=== PATIENT | female | born 1990 | race Caucasian/White ===

== ENCOUNTER → 2016-07-16 | Outpatient (CLI) | payer BC ==
[~2016-07-16] MED LIST: NICO2GUM PO
== END | disposition home or self-care (01) ==
LOC: C.PAPS 11:02
PROVIDERS: ATTEND Obstetrics & Gynecology
DX: Z01.419 Encounter for gynecological examination (general) (routine) without abnormal findings (principal)

== ENCOUNTER 2017-03-03 23:04 | Emergency (ER) | payer BC ==
[~2017-03-03] VITALS: Ht 162.6 cm; Wt 68.7 kg
[2017-03-03 23:05] VITALS: TEMP 36.7; Ht 162.6 cm; Wt 68.7 kg
--- NOTE | 2017-03-03 23:23 | EMERGENCY ROOM VISIT NOTE ---
History Report prepared by Addy: Chris Joseph Under the Supervision of: Nhan WhyteO. First contact with patient: 23:08 Chief Complaint: ABDOMINAL PAIN Stated Complaint: GALLBLADDER History of Present Illness The patient is a 26 year old female who presents to the Emergency Room with complaints of a constant, burning sensation to her right upper quadrant and epigastric region of her abdomen beginning 45 minutes ago. She currently rates her discomfort a 7/10 in severity. The patient states her pain originally was a 10/10 in severity, and she was nauseous. She reports she thinks it has to do with her gallbladder. The patient notes it feels like her stomach lining is burning. She states she ate potpie for dinner. The patient reports she had a few bites and felt extremely full and bloated. She denies a family history of stomach problems, gallbladder disease, fevers, chills, changes in bowel movements, urinary symptoms, medication changes, diet changes, and the chance of . Source of History: patient Onset: 45 minutes ago Position: abdomen (RUQ and epigastric) Symptom Intensity: 7/10 Quality: burning Timing: constant Associated Symptoms: + nausea, No fevers, No chills Note: Associated symptoms: bloated Denies: changes in bowel movements, urinary symptoms, medication changes, diet changes, and the chance of Review of Systems See HPI for pertinent positives & negatives. A total of 10 systems reviewed and were otherwise negative. Past Medical & Surgical Medical Problems: (1) (2) History of - miscarriage Family History Diabetes mellitus Social History Smoking Status: Former Smoker Alcohol Use: none Marital Status: single Occupation Status: employed Current/Historical Medications Scheduled Nicotine Polacrilex (Nicotine Polacrilex Start), 1 DOSE PO UD Allergies Coded Allergies: No Known Allergies (Unverified , 03/03/17) Physical Exam Vital Signs Date Time Temp Pulse Resp B/P (MAP) Pulse Ox O2 Delivery O2 Flow Rate FiO2 03/04/17 00:57 66 18 120/75 98 03/04/17 00:54 64 99 03/04/17 00:39 68 97 03/04/17 00:30 100/54 03/04/17 00:24 67 98 03/04/17 00:15 107/56 03/04/17 00:15 70 16 107/56 98 Room Air 03/03/17 23:34 63 18 99 Room Air 03/03/17 23:30 106/61 03/03/17 23:25 106/64 03/03/17 23:05 36.7 72 18 102/57 99 Room Air Physical Exam GENERAL: alert, well appearing, well nourished, no distress, non-toxic EYE EXAM: normal conjunctiva, PERRL and EOM's grossly intact OROPHARYNX: no exudate, no erythema, lips, buccal mucosa, and tongue normal and mucous membranes are moist NECK: supple, no nuchal rigidity, no adenopathy, non-tender LUNGS: Clear to auscultation. Normal chest wall mechanics HEART: no murmurs, S1 normal and S2 normal ABDOMEN: abdomen soft, RUQ and epigastric tenderness to palpation, normo-active bowel sounds, no masses, no rebound or guarding. BACK: Back is symmetrical on inspection and there is no deformity, no midline tenderness, no CVA tenderness. SKIN: no rashes and no bruising UPPER EXTREMITIES: upper extremities are grossly normal. LOWER EXTREMITIES: No pitting edema. NEURO EXAM: Normal sensorium, cranial nerves II-XII grossly intact, normal speech, no gross weakness of arms, no gross weakness of legs. Medical Decision & Procedures ER Provider Diagnostic Interpretation: Radiology results have been interpreted by the radiologist and reviewed by me. US GALLBLADDER: Comparison: Abdomen pelvis February 10, 2012. Gallbladder sludge. No gallstones or evidence of cholecystitis. No wall thickening or pericholecystic fluid. No biliary dilatation. Minimal dilatation of the pancreatic duct in the body (3mm). Liver and right kidney are unremarkable. No free fluid. Radiologist: Aurelio Granados MD Study ready at 0014 and initial results transmitted at 0030. Laboratory Results 03/03/17 23:30 Red Blood Count 3.94, Mean Corpuscular Volume 90.1, Mean Corpuscular Hemoglobin 31.5, Mean Corpuscular Hemoglobin Concent 34.9, Mean Platelet Volume 9.6, Neutrophils (%) (Auto) 56.8, Lymphocytes (%) (Auto) 34.2, Monocytes (%) (Auto) 7.1, Eosinophils (%) (Auto) 1.2, Basophils (%) (Auto) 0.4, Neutrophils # (Auto) 3.95, Lymphocytes # (Auto) 2.38, Monocytes # (Auto) 0.49, Eosinophils # (Auto) 0.08, Basophils # (Auto) 0.03 03/03/17 23:30 Test 03/03/17 23:30 White Blood Count 6.95 K/uL (4.8-10.8) Red Blood Count 3.94 M/uL (4.2-5.4) Hemoglobin 12.4 g/dL (12.0-16.0) Hematocrit 35.5 % (37-47) Mean Corpuscular Volume 90.1 fL (80-100) Mean Corpuscular Hemoglobin 31.5 pg (25-34) Mean Corpuscular Hemoglobin Concent 34.9 g/dl (32-36) Platelet Count 200 K/uL (130-400) Mean Platelet Volume 9.6 fL (7.4-10.4) Neutrophils (%) (Auto) 56.8 % Lymphocytes (%) (Auto) 34.2 % Monocytes (%) (Auto) 7.1 % Eosinophils (%) (Auto) 1.2 % Basophils (%) (Auto) 0.4 % Neutrophils # (Auto) 3.95 K/uL (1.4-6.5) Lymphocytes # (Auto) 2.38 K/uL (1.2-3.4) Monocytes # (Auto) 0.49 K/uL (0.11-0.59) Eosinophils # (Auto) 0.08 K/uL (0-0.5) Basophils # (Auto) 0.03 K/uL (0-0.2) RDW Standard Deviation 39.8 fL (36.4-46.3) RDW Coefficient of Variation 12.1 % (11.5-14.5) Immature Granulocyte % (Auto) 0.3 % Immature Granulocyte # (Auto) 0.02 K/uL (0.00-0.02) Anion Gap 6.0 mmol/L (3-11) Est Creatinine Clear Calc Drug Dose 85.8 ml/min Estimated GFR () 96.9 Estimated GFR (Non- 83.6 BUN/Creatinine Ratio 15.2 (10-20) Calcium Level 8.4 mg/dl (8.5-10.1) Total Bilirubin 0.2 mg/dl (0.2-1) Aspartate Amino Transf (AST/SGOT) 12 U/L (15-37) Alanine Aminotransferase (ALT/SGPT) 18 U/L (12-78) Alkaline Phosphatase 40 U/L (45-117) Total Protein 6.7 gm/dl (6.4-8.2) Albumin 3.5 gm/dl (3.4-5.0) Globulin 3.2 gm/dl (2.5-4.0) Albumin/Globulin Ratio 1.1 (0.9-2) Lipase 235 U/L (73-393) Human Chorionic Gonadotropin, Qual NEG (NEG) Laboratory results per my review. Medications Administered Medications (Trade) Dose Ordered Sig/Davie Route Start Time Stop Time Status Last Admin Dose Admin Famotidine (Pepcid 20mg Iv Push) 20 mg NOW STAT IV 03/04/17 00:19 03/04/17 00:20 DC 03/04/17 00:53 20 MG Al Hydroxide/Mg Hydroxide (Maalox Susp) 15 ml NOW STAT PO 03/04/17 00:19 03/04/17 00:20 DC 03/04/17 00:52 15 ML ED Course 2308: The patient was evaluated in room B05. A complete history and physical exam was performed. 0019: Ordered Maalox Susp 15ml PO, Famotidine 20mg IV 0041: Upon reevaluation, the patient is feeling better. 0052: After receiving the ultrasound results, I discussed the findings and the treatment plan with the patient. She verbalizes agreement and understanding. The patient was discharged home. Medical Decision Differential diagnoses includes but is not limited to gastritis, peptic ulcer disease, GERD, gallbladder disease, pancreatitis, small bowel obstruction, acute coronary syndrome, pericarditis, ischemic bowel, irritable bowel disease, irritable bowel syndrome, appendicitis, diverticulitis, malignancy, hernia, urinary tract infection, torsion, /ectopic , perforation, trauma, infectious. Patient well-appearing here and pain improved here prior to my evaluation. Discussed patient labs and imaging. Discussed likely biliary colic given diet and prior milder episodes. Discussed follow-up with family doctor in possible need for HIDA scan or surgical evaluation as an outpatient. No evidence of acute cholecystitis, doubt cholangitis, perforation, GI bleed. Discussed with patient possibility of GERD/gastritis to given symptoms of indigestion and acidity in diet. Discussed symptoms to watch and return for, dietary changes and adequate hydration, she verbalized understanding was agreeable with plan. Medication Reconcilliation Current Medication List: was personally reviewed by me Blood Pressure Screening Patient's blood pressure: Normal blood pressure Impression Primary Impression: Right upper quadrant abdominal pain Additional Impression: Biliary sludge Scribe Attestation The scribe's documentation has been prepared under my direction and personally reviewed by me in its entirety. I confirm that the note above accurately reflects all work, treatment, procedures, and medical decision making performed by me. Departure Information Dispostion Home / Self-Care Referrals Cesar Wilson M.D. (PCP) Forms HOME CARE DOCUMENTATION FORM, IMPORTANT VISIT INFORMATION Patient Instructions My [facility] [place] Additional Instructions Please eat a light and bland diet and avoid foods that have a higher fat content such as fried foods, gravy, ice cream, desserts. Your ultrasound showed sludge in your gallballder, but no larger stones and no evidence of acute infection or inflammation. Please follow up with your family doctor and follow up with a surgeon regarding possible additional evaluation of her gallbladder. Your family doctor may suggest additional testing of your gallbladder including a nuclear scan. Please also monitor the amount of acid in your diet as this can contribute to stomach irritation and reflux. If you develop recurrent or worsening pain, vomiting, fevers, noticed black or bloody stools, have trouble breathing, chest pain, or you've any other new concerns, please return the emergency room. Problem Qualifiers
[2017-03-03] MEDS ORDERED: NICO2GUM PO (23:32)
[2017-03-03 23:43] LABS: BASO % 0.4 %; BASO ABS # 0.03 K/uL (0-0.2); COMPLETE YES; EOS % 1.2 %; HEMATOCRIT 35.5 % (37-47); IG% 0.3 %; LYMPH % 34.2 %; LYMPH ABS # 2.38 K/uL (1.2-3.4); MEAN CELL VOLUME 90.1 fL (80-100); MEAN CORPUSCULAR HEMOGLOBIN 31.5 pg (25-34); MEAN CORPUSCULAR HGB CONC 34.9 g/dl (32-36); MEAN PLATELET VOLUME 9.6 fL (7.4-10.4); MONO % 7.1 %; NEUT % 56.8 %; PLATELET COUNT 200 K/uL (130-400); RED BLOOD COUNT 3.94 M/uL (4.2-5.4); WHITE BLOOD COUNT 6.95 K/uL (4.8-10.8)
[2017-03-04 00:05] LABS: PREG INTERNAL NEGATIVE QC NEG CLEAR BACKGROUND; PREG INTERNAL POSITIVE QC POS CONTROL LINE
[2017-03-04 00:08] LABS: BUN/CREATININE RATIO 15.2 (10-20); CALCIUM 8.4 mg/dl (8.5-10.1); CREATININE 0.93 mg/dl (0.60-1.20); POTASSIUM 3.5 mmol/L (3.5-5.1)
[2017-03-04 00:11] LABS: ALB/GLOB RATIO 1.1 (0.9-2)
[2017-03-04] MEDS ORDERED: FAMOTIDINE 20MG/5ML IV PUSH IV STA (00:19)
[2017-03-04] MEDS ORDERED: ALUMINUM/MAGNESIUM SUSP 30 ML UDC PO STA (00:19)
[2017-03-04 00:57] VITALS: BP 120/75; PULSE 66; O2SAT 98
--- NOTE | 2017-03-04 06:55 | DIAGNOSTIC IMAGING REPORT ---
BILIARY ULTRASOUND CLINICAL HISTORY: Right upper quadrant abdominal pain COMPARISON STUDY: No previous studies for comparison. FINDINGS: The pancreatic duct is the upper limits of normal diameter measuring 3 mm in maximal size. No pancreatic masses are visualized.. The liver appears sonographically normal. There is no hydronephrosis. There is tumefactive sludge in the gallbladder. No shadowing calculi are visualized. There is no wall thickening. There is no ductal dilatation. The common bile duct measures 2 mm. IMPRESSION: Tumefactive sludge within the gallbladder. No shadowing calculi identified. No evidence of ductal dilatation. Electronically signed by: Rafat Chambers M.D. 03/04/2017 6:54 AM Dictated Date/Time: 03/04/2017 6:52 AM
== END 2017-03-04 01:02 | disposition home or self-care (01) ==
LOC: C.EDB 23:04
DX: R10.11 Right upper quadrant pain (principal); K83.8 Other specified diseases of biliary tract; Z87.891 Personal history of nicotine dependence; Z83.3 Family history of diabetes mellitus

== ENCOUNTER 2019-11-03 06:55 | Inpatient (IN) ==
[2019-11-03] MEDS ORDERED: OXYTOCIN 30 UNITS/500 ML BAG IV PRN ×3 (07:39→14:13)
[2019-11-03] MEDS ORDERED: LACTATED RINGER'S 1,000 ML IV PRN (07:39)
--- NOTE | 2019-11-03 07:45 | Labor Progress Brief Note ---
Date of Service November 03, 2019 Subjective SROM for large amount clear fluid at 0630, presented to ER. Onset of contractions mild, not yet painful. No VB, good FM. Assessment & Plan (1) SROM (spontaneous rupture of membranes): SROM, will augment with pitocin as contractions only very mild so far. GBS neg. Velamentous cord insertion noted. Physical Exam Constitutional: WD/WN, vitals as above Eyes: PERRL, conjunctivae normal, anicteric sclerae ENMT: external ear and nose normal, oropharynx normal Neck: supple Respiratory: normal respiratory effort and able to speak in complete sentences; no respiratory distress Cardiovascular: Rate/Rhythm: regular rate and regular rhythm Extremities: + pedal edema Gastrointestinal (Abdomen): Gravid / AGA, nontender Musculoskeletal: no cyanosis or clubbing, extremities motor strength 5/5 Skin: no rashes, warm and dry Neurologic: patellar DTR's 2+ bilat, sensation intact Psychiatric: A+Ox3, euthymic affect Genitourinary: Speculum/Bimanual Exam: no vaginal lesions, no vaginal bleeding and uterus nontender OB Exam Abdomen: + vertex, + estimated weight (7) and + regular contractions (Q3) Manual OB Exam: + cervical dilation 3 cm, + cervical effacement 50%, + station -2 and + amniotic fluid clear and ferning present OB Exam Monitor Tracing: + external FHT monitor used, + external uterine monitor used and + category I Lymphatic: no cervical or axillary lymphadenopathy Results & Data ([facility]) Vital Signs (Past 12 Hours) Vital Signs Pulse BP 11/03/19 07:04 105 H 106/61 Coding Level of Care Code None Diagnoses SROM (spontaneous rupture of membranes)
--- NOTE | 2019-11-03 08:06 | History & Physical Report ---
Date of Service November 03, 2019 Assessment & Plan (1) SROM (spontaneous rupture of membranes): [place] Andres is a 29 y/o female currently at 39-4/7 WGA with an MARA 11/06/2019 as determined by LMP who is here with her , Donnie, for anticipated labor in the setting of SROM earlier this AM. Her has only been complicated by velamentous cord insertion, which has been followed with weekly NSTs since 36 WGA. - SROM earlier this AM; confirmed on vaginal examination and with fernining via microscopy per Dr. Hill - Cat I w/ +FHT variability - Estimate weight ~7-8lb - Anticipate - Patient not requesting an epidural at this time and would like to attempt without analgesia -- has been informed that if at any point she wants one to let us know. Blood Type: A+ GBS: negative Rubella: immune Present on Admission?: Yes History of Present Illness Primary Care Provider: Cesar Wilson MD [place] Andres is a 29 y/o female currently at 39-4/7 WGA with an MARA 11/06/2019 as determined by LMP who is here for a anticipated labor in the setting of SROM earlier this AM. Her has only been complicated by velamentous cord insertion, which has been followed with weekly NSTs since 36 WGA. Endorses some irregular contractions; notices less movement that typical in the setting of contractions; endorses fluid loss early this AM with a tint of blood. No laina bloody discharge. External FHT and external uterine monitors used; Category I tracing; +FHT variability. Had regular appointments with OB. Labs: (04/18/19) Blood type: A+ Antibody screen: neg H.8 Hct: 42.3 WBC: 7.96 Plt: 216 Rubella: immune VDRL/RPR: NR Gonorrhea: neg Chlamydia: neg HIV: neg HBsAg: neg GBS:neg Other screens: CF: neg SMA: neg cff-DNA: neg Allergies Allergy/AdvReac Type Severity Reaction Status Date / Time No Known Allergies Allergy Verified 11/01/19 15:10 Home Medications Home Medications Medication Instructions Recorded Confirmed Type prenat.vits,lisa,xhg-gech-rorsy 1 tab PO DAILY 04/14/19 11/01/19 History breast pump #1 ea 11/04/19 Rx breast pump #1 ea 11/04/19 Rx breast pump #1 ea 11/04/19 Rx Patient History Medical History Abdominal pain, RUQ (right upper quadrant) Acne Bacterial vaginosis Bartholin gland cyst Bartholin gland cyst (Inactive) Changing skin lesion (Resolved) COPD (chronic obstructive pulmonary disease) Costochondritis Dyspnea on exertion Encounter for anatomic survey H/O miscarriage, currently Hx of varicella Neck pain on left side Need for tuberculosis vaccination Palpitations Palpitations Paresthesias (Inactive) Skin lesion of left leg Tobacco use Surgical History H/O oral surgery Social History Smoking Status: Former smoker Cigarettes Per Day: 2; Hx Alcohol Use: No Hx Substance Use: No Preferred Language: Portuguese 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 Required: No Beliefs That Will Affect Care: None marital status: Single marital status details: Donnie Harris (29) [phone] Current Living Situation: Significant Other Current Living Situation Comment: lives with FOB, kids 1 dog, 2 birds current occupational status: employed current occupation: [employer] Feels Safe at Home: Yes Review of Systems no fever, no chills and no sweats endorses very mild headache over the last day, not associated with changes in vision no dyspnea no chest pain, no dyspnea, no dyspnea at rest and no palpitations no dysuria no breast pain Physical Exam Physical Exam: General: Alert, oriented. No acute distress. Cardiac: Regular rate and rhythm, no murmurs/rubs/gallops. Respiratory: Clear to auscultation bilaterally a/p, no wheezes/rales/rhonchi. No increased work of breathing. Symmetrical chest rise. No respiratory distress. Pelvic: Dilation 3 cm; Effacement 50%; Station -[address] Hill Lower Extremities: No lower extremity edema or swelling. No deep calf pain. Anaya's negative bilaterally Results & Data Vital Signs (Past 12 Hours) Vital Signs Pulse BP 11/03/19 07:04 105 H 106/61 Code Status & VTE Plan VTE Prophylaxis Plan VTE Prophylaxis will be ordered: Yes Resident Activity Tracking Resident Involvement: Resident Care Provided Care Provided: Adult Hospital Medicine and OB Delivery
[2019-11-03 08:10] LABS: Hematocrit (blood only) 38.8 % (37-47); Hemoglobin 13.5 g/dL (12.0-16.0); Mean Corpuscular Hemoglobin 31.7 pg (25-34); Mean Corpuscular Volume 91.1 fL (80-100); Mean Platelet Volume 11.3 fL (7.4-10.4); Platelet Count 156 K/uL (130-400); RDW Coefficient of Variation 13.1 % (11.5-14.5); Red Blood Count 4.26 M/uL (4.2-5.4); White Blood Count 8.75 K/uL (4.8-10.8)
[2019-11-03 08:12] LABS: Mean Corpuscular Hgb Conc 34.8 g/dL (32-36)
[2019-11-03] MEDS ORDERED: OXYCODONE/ACETAMINOPHEN 5mg/325mg TAB PO PRN (14:06)
[2019-11-03] MEDS ORDERED: ACETAMINOPHEN 325 MG TAB PO PRN (14:06)
[2019-11-03] MEDS ORDERED: IBUPROFEN 600 MG TAB PO PRN (14:06)
--- NOTE | 2019-11-03 14:12 | Delivery Summary ---
Vaginal Delivery Summary Date of Service November 03, 2019 Vaginal Delivery Summary Pre-operative Diagnosis: at term arom labor Post-operative Diagnosis: same Procedure: pitocin augmentation second degree laceration and repair EBL: 350cc Anesthesia: local infiltration of lidocaine to perineum Procedure: The patient pushed for one contraction to deliver a viable female in kenyon position. A loose nuchal cord x 1 was reduced easily and the rest of the infant was then delivered without difficulty. The baby was vigorous. The nose and mouth were bulb suctioned and the was placed in the maternal abdomen for drying and attention. Cord was clamped and cut at one minute of life. Cord blood obtained. Placenta delivered spontaneous, intact with a three vessel cord. Cervix/sulci/rectum were intact. A second degree perineal laceration was repaired in the normal standard fashion. Hemostasis obtained with dilute pitocin and fundal massage. Apgars were 8/9. Mother and baby doing well at the end of the delivery. [facility] Vaginal Delivery Charge Vaginal Delivery Codes: 13475 global code for the antepartum, delivery, and post-
[2019-11-03] MEDS ORDERED: HYDROCORTISONE ACETATE 25 MG SUPP PR PRN (14:13)
[2019-11-03] MEDS ORDERED: bisacodyL 10 MG SUPP PR PRN (14:13)
[2019-11-03] MEDS ORDERED: BENZOCAINE 20% AER SPR 82.5 GM CAN EXT PRN (14:13)
[2019-11-03] MEDS ORDERED: DIPHTHERIA/TETANUS/PERTUSSIS 0.5 ML SYR/VIAL IM ONE (14:13)
[2019-11-03] MEDS ORDERED: SUPERCREAM 0.870% 15 GM JAR EXT PRN (14:13)
[2019-11-03] MEDS: DOCUSATE SODIUM 100 MG CAP PO SCH (20:25)
--- NOTE | 2019-11-04 05:04 | Obstetrical Progress Note ---
Date of Service November 04, 2019 Assessment & Plan (1) Spontaneous vaginal delivery: - Feels well today. Eating well, voiding well, ambulating well. - Pain well controlled with ibuprofen 600mg Q4H PRN. - Routine PPD care -- OOB, ambulation, diet progression as tolerated Subjective [place] is a 29 y/o female who is now PPD #1 following at 39-4/7 weeks. Reports feeling well overall this morning. Some abdominal cramping that is well managed on analgesics. Voiding without difficulty. Tolerating meals overnight and able to ambulate some. Passing gas but not yet bowel movements. Some persistent lochia with some improvement this morning. Breast feeding. Review of Systems Denies fever, chills, sweats Denies shortness of breath, difficulty breathing, chest pain, palpitations, chest pressure. Denies breast pain. Denies dysuria. Denies headache or changes in vision. Physical Exam General: Alert, oriented. No acute distress. Cardiac: Regular rate and rhythm, no murmurs/rubs/gallops. Respiratory: Clear to auscultation bilaterally a/p, no wheezes/rales/rhonchi. No increased work of breathing. Symmetrical chest rise. No respiratory distress. Abdomen: Soft, nontender, nondistended. Bowel sounds present. Uterus: Uterine fundus firm, palpable 1 cm below umbilicus. Lower Extremities: No lower extremity edema or swelling. No deep calf pain. Anaya's negative bilaterally. Results & Data Vital Signs (Past 12 Hours) Vital Signs Temp Pulse Resp BP 11/04/19 03:30 37.0 C 67 20 118/69 11/03/19 23:20 37.2 C 68 18 122/75 11/03/19 19:45 37.1 C 54 L 18 123/78 Resident Activity Tracking Resident Involvement: Resident Care Provided Care Provided: Adult Hospital Medicine and OB Delivery
[2019-11-04 06:34] LABS: Mean Corpuscular Hemoglobin 31.5 pg (25-34); Mean Corpuscular Hgb Conc 34.3 g/dL (32-36); Mean Corpuscular Volume 91.9 fL (80-100); Mean Platelet Volume 11.4 fL (7.4-10.4); Platelet Count 153 K/uL (130-400); RDW Coefficient of Variation 13.2 % (11.5-14.5); RDW Standard Deviation 43.5 fL (36.4-46.3); Red Blood Count 3.81 M/uL (4.2-5.4); White Blood Count 11.91 K/uL (4.8-10.8)
[2019-11-04] MEDS ORDERED: PRENATAL VITAMIN 1 TAB PO SCH ×2 (08:00→09:00)
[2019-11-04] MEDS: DOCUSATE SODIUM 100 MG CAP PO SCH (08:29)
[2019-11-04] MEDS ORDERED: bisacodyL 5 MG TABEC PO SCH (20:00)
== END 2019-11-04 15:55 | disposition home or self-care (01) | DRG 807 ==
LOC: OPB 06:55 → 4S1 06:57 → 4S2 15:30

== ENCOUNTER 2024-05-27 14:05 | Inpatient (IN) ==
[2024-05-27] MEDS ORDERED: OXYTOCIN 30 UNITS/NSS 30 UNITS/500 ML BAG IV PRN ×2 (14:38→19:23)
[2024-05-27] MEDS ORDERED: LIDOCAINE 1% LOCAL 20 ML VIAL INFIL PRN (14:38)
[2024-05-27] MEDS: LACTATED RINGER'S 1,000 ML IV PRN (15:00)
--- NOTE | 2024-05-27 15:03 | History & Physical Report ---
Date of Service May 27, 2024 Assessment & Plan (1) IUGR (intrauterine growth restriction) affecting care of mother: (2) Elderly multigravida: (3) with 38 completed weeks gestation: Plan iol for iugr. She would like this to go as fast as possible, as she does not want an epidural. Agreeable to arom/pit concurrently. fetus category one. Peds aware of the situation. Anticipate Patient is worried about the placenta and pph. Note made of increased vascularity between placenta and myometrium. Will be prepared for the potential of pph. Admission and Anticipated Discharge Date Admission Date: May 27, 2024 History of Present Illness Chief Complaint: iol Primary Care Provider: Kate Reis MD Patient is a 33yowf with iup at 38 5/7 weeks who presents to labor and delivery for iol for iugr. no lof/vb. +fm. Occasional contraction. Patient is feeling anxious. Recent n/v/d illness. Feeling a bit better. Last us was 05/13. EFW 2236gm, 3%, AC <2%. Has been testing well We have continued to see increased vascularity between the placenta and the myometrium. MFM did not appreciate this. and Delivery Plans AMA Weekly NST's @ 36 weeks IUGR--> EFW 3% on 05/13 - IOL 05/26 *Twice weekly NST/DVP@Dx *Weeklyl doppler@Dx *Growth US Q4wk @Dx *Deliver [id number] (unless abnml flow) *Deliver 37wks (less than 3rd%) Chewing tobacco daily Thyroid Nodule Frequent PVCs *follows with PCP *maternal echo stable Increased Vascularity between placenta and myometrium on f/u Anatomy, need heart views *[facility] consult (03/14/24 @ [facility] [place] *Normal appearing US @ [facility] *Growth US Q 4 wks. OB Labs: Blood Type A Positive 10/26/23 Antibody Screen NEGATIVE 10/26/23 Hgb 12.6 g/dl (12.0-16.0) 03/16/24 Hct 37.3 % (37.0-47.0) 03/16/24 MCV 85.0 fL (80.0-100.0) 10/26/23 Plt Count 237 K/uL (130-400) 10/26/23 Rubella IgG Antibody Immune (Immune) 10/26/23 RPR Nonreactive (Nonreactive) 04/18/19 Treponema pallidum Ab Negative (Negative) 03/16/24 Hep Bs Antigen Negative (Negative) 10/26/23 Hepatitis C Antibody Negative (Negative) 10/26/23 HIV 1&2 Ab/P24 Ag 4thGn Negative (Negative) 10/26/23 Glucose 1 Hr 50 gm 159 mg/dl (70-130) H 03/31/24 Maternal Serum AFP 21.6 ng/mL 05/19/19 OB Optional Labs: Chlamydia trachomatis RNA Not Detected (NotDetected) 10/26/23 Neisseria gonorrhoeae RNA Not Detected (NotDetected) 10/26/23 Thyroid Stimulating Hormone (TSH) 0.845 uIu/ml (0.300-4.500) 10/08/23 Alpha Fetoprotein Triple Screen SEE NOTE 05/19/19 Labs Reviewed: 04/18/19 cf/sma neg gbs neg Allergies Allergy/AdvReac Type Severity Reaction Status Date / Time No Known Allergies Allergy Verified 05/19/24 15:21 Home Medications Medication Instructions Recorded Confirmed Type docosahexaenoic acid [ DHA] PO 11/23/23 05/19/24 History breast pump #1 ea 05/18/24 05/19/24 Rx Patient History Medical History Missed LGSIL on Pap smear of cervix Bartholin gland cyst Bacterial vaginosis Bartholin gland cyst Changing skin lesion Dyspnea on exertion Palpitations Skin lesion of left leg Hx of varicella Acne Costochondritis Palpitations COPD (chronic obstructive pulmonary disease) Paresthesias Surgical History H/O surgical removal of Bartholin’s gland cyst H/O oral surgery wisdom teeth Family History Grandfather (Paternal) Diabetes Grandfather (Maternal) Diabetes Denies family history of Ovarian cancer Prostate cancer Coronary heart disease Breast cancer Colorectal cancer Social History Smoking Status: Never smoker Tobacco Type: Smokeless Tobacco (Dip or Chew) Age Started Using Tobacco: 18; packs per day: 0.5; Cigarettes Per Day: 2; Second Hand Exposure: No; Do You Dip or Chew Tobacco: Yes; Tobacco Cessation Education Requested by Patient: No Hx Alcohol Use: No Hx Substance Use: No Preferred Language: Japanese Communication Ability: Effective Visual Impairment: No Limitations Hearing Ability: Normal Keg Raiser Required: No Beliefs That Will Affect Care: None marital status: Single marital status details: alex Harris (33) [phone] Current Living Situation: Significant Other Current Living Situation Comment: MELISSA Fields, 13 year old daughter, 4 year old daughter current occupational status: employed current occupation: [employer] How many Children do You have: 3 Other Information That Helps Us Care for You: No Feels Safe at Home: Yes Safety Concerns: Feels Safe At This Time Childhood Exposure to Second-Hand Smoke: Yes Diet: regular caffeine: Yes during the past year weight has: remained stable Dental Care, Regularly: Yes Physical Activity Frequency: Does not Exercise Seatbelt Use: always Sunscreen Use: Yes Assistive Devices: None OB History Past Pregnancies Del. Date GA wks Lbr Lgth wt Sex Type del Anes Place Del Prov ? Comment 12/25/06 41 36 hours 9lbs 8oz F Epidural [facility] Dr. Atkinson No 03/30/09 Aborted-Spontaneous 12/19/10 40 4.5 hours 6lbs 8 oz F Epidural [facility] Dr. Atkinson No low amniotic fluid 11/03/19 39 7 lbs 13.6 oz F None [facility] Dr Atkinson No 03/10/22 6 Aborted-Spontaneous MAB measuring 6w1d on U/s [employer] History noncontributory Physical Exam Constitutional: WD/WN, vitals as above Gastrointestinal (Abdomen): soft, gravid, nt Psychiatric: A+Ox3, euthymic affect Genitourinary: cx--3/50/-2/soft toco--occasional contraction efm--130s wtih mod variability, accels to 160s, no decels arom--clear Results & Data Vital Signs (Past 12 Hours) Vital Signs Temp Pulse Resp BP 05/27/24 14:52 75 129/80 05/27/24 14:46 36.9 C 75 16 129/80 Coding Level of Care Code None Diagnoses IUGR (intrauterine growth restriction) affecting care of mother O36.5990 Elderly multigravida O09.529 with 38 completed weeks gestation Z3A.38
[2024-05-27] MEDS: OXYTOCIN 30 UNITS/NSS 30 UNITS/500 ML BAG IV PRN (15:25)
[2024-05-27 15:33] LABS: Hematocrit (blood only) 35.5 % (37.0-47.0); Hemoglobin 12.2 g/dl (12.0-16.0); Mean Corpuscular Hemoglobin 29.8 pg (25.0-34.0); Mean Corpuscular Hgb Conc 34.4 g/dL (32.0-36.0); Mean Corpuscular Volume 86.6 fL (80.0-100.0); Mean Platelet Volume 11.2 fL (9.4-12.4); Platelet Count 176 K/uL (130-400); RDW Coefficient of Variation 13.2 % (11.5-14.5); RDW Standard Deviation 41.2 fL (36.4-46.3); White Blood Count 7.29 K/ul (4.8-10.8)
[2024-05-27] MEDS ORDERED: SODIUM CHLORIDE 0.9% 50 ML IV PRN (15:50)
[2024-05-27] MEDS ORDERED: SODIUM CHLORIDE 0.9% 100 ML IV PRN (15:50)
--- NOTE | 2024-05-27 15:59 | Medical Student H&P ---
Date of Service May 27, 2024 Assessment & Plan (1) with 38 completed weeks gestation: (2) IUGR (intrauterine growth restriction) affecting care of mother: Fetus number: single or unspecified fetus Trimester: third trim kai Qualified Code(s): O36.5930 - Maternal care for other known or suspected poor growth, third trimester, not applicable or unspecified (3) Elderly multigravida: Trimester: third trimester Qualified Code(s): O09.523 - Supervision of elderly multigravida, third trimester Plan Patient is a 33yo female with IUP at 38 5/7 weeks who presents for IOL for IUGR. Most recent growth ultrasound 05/13: EFW 2236gm, 3%, AC <2%. Plan is to AROM and start pitocin simultaneously, and patient agrees. Anticipate a . Admission and Anticipated Discharge Date Admission Date: May 27, 2024 History of Present Illness Primary Care Provider: Kate Reis MD Patient is a 33yo female with IUP at 38 5/7 weeks who presents for induction of labor for IUGR. No leakage of fluid or vaginal bleeding. Reports movement. Reports feeling ginny cain contractions intermittently. She had the stomach bug two days ago -- reports nausea, vomiting, diarrhea. Reports feeling better today. has been complicated by IUGR. Began receiving twice weekly NST/DVP, weekly dopplers, and q4wk growth US at timing of diagnosis. She has also been receiving weekly NST's starting at 36 weeks d/t AMA. Growth ultrasound 05/13: EFW 2236gm, 3%, AC <2%. We have continued to see increased vascularity between the placenta and the myometrium. Patient was seen by MFM who did not report this finding. OB Hx: All 3 prior deliveries were - detailed below. Uncomplicated deliveries. G4 (delivery 11/03/19) complicated by velamentous cord insertion, otherwise no complications. Past Pregnancies Del. Date GA wks Lbr Lgth wt Sex Type del Anes Place Del Prov ? Comment 12/25/06 41 36 hours 9lbs 8oz F Epidural [facility] Dr. Atkinson No 03/30/09 Aborted-Spontaneous 12/19/10 40 4.5 hours 6lbs 8 oz F Epidural [facility] Dr. Atkinson No low amniotic fluid 11/03/19 39 7 lbs 13.6 oz F None [facility] Dr Atkinson No velamentous cord insertion 03/10/22 6 Aborted-Spontaneous MAB measuring 6w1d on U/s OB Labs: Blood Type A Positive 10/26/23 Antibody Screen NEGATIVE 10/26/23 Hgb 12.6 g/dl (12.0-16.0) 03/16/24 Hct 37.3 % (37.0-47.0) 03/16/24 MCV 85.0 fL (80.0-100.0) 10/26/23 Plt Count 237 K/uL (130-400) 10/26/23 Rubella IgG Antibody Immune (Immune) 10/26/23 RPR Nonreactive (Nonreactive) 04/18/19 Treponema pallidum Ab Negative (Negative) 03/16/24 Hep Bs Antigen Negative (Negative) 10/26/23 Hepatitis C Antibody Negative (Negative) 10/26/23 HIV 1&2 Ab/P24 Ag 4thGn Negative (Negative) 10/26/23 Glucose 1 Hr 50 gm 159 mg/dl (70-130) H 03/31/24 Maternal Serum AFP 21.6 ng/mL 05/19/19 OB Optional Labs: Chlamydia trachomatis RNA Not Detected (NotDetected) 10/26/23 Neisseria gonorrhoeae RNA Not Detected (NotDetected) 10/26/23 Thyroid Stimulating Hormone (TSH) 0.845 uIu/ml (0.300-4.500) 10/08/23 Alpha Fetoprotein Triple Screen SEE NOTE 05/19/19 Labs Reviewed: 04/18/19 cf/sma neg gbs neg Allergies Allergy/AdvReac Type Severity Reaction Status Date / Time No Known Allergies Allergy Verified 05/19/24 15:21 Home Medications Medication Instructions Recorded Confirmed Type breast pump #1 ea 05/18/24 05/19/24 Rx Past Med/Surg History Problem List with 38 completed weeks gestation IUGR (intrauterine growth restriction) affecting care of mother Back pain affecting in third trimester Tobacco use in , antepartum Elderly multigravida H/O miscarriage, currently Coccydynia Acute calculous cholecystitis Encounter for anatomic survey Thyroid nodule Low TSH level Obesity (BMI 30.0-34.9) Pulmonary air trapping Orthopnea COPD, mild (Acute) Tobacco use (Acute) chewing tobacco Medical History Missed LGSIL on Pap smear of cervix Bartholin gland cyst Bacterial vaginosis Bartholin gland cyst Changing skin lesion Dyspnea on exertion Palpitations Skin lesion of left leg Hx of varicella Acne Costochondritis Palpitations COPD (chronic obstructive pulmonary disease) Paresthesias Surgical History H/O surgical removal of Bartholin’s gland cyst H/O oral surgery wisdom teeth Family History Grandfather (Paternal) Diabetes Grandfather (Maternal) Diabetes Denies family history of Ovarian cancer Prostate cancer Coronary heart disease Breast cancer Colorectal cancer Social History Smoking Status: Never smoker Tobacco Type: Smokeless Tobacco (Dip or Chew) Age Started Using Tobacco: 18; packs per day: 0.5; Cigarettes Per Day: 2; Second Hand Exposure: No; Do You Dip or Chew Tobacco: Yes; Tobacco Cessation Education Requested by Patient: No Hx Alcohol Use: No Hx Substance Use: No Preferred Language: Irish Communication Ability: Effective Visual Impairment: No Limitations Hearing Ability: Normal Lumber Hacker Required: No Beliefs That Will Affect Care: None marital status: Single marital status details: alex Harris (33) [phone] Current Living Situation: Significant Other Current Living Situation Comment: MELISSA Fields, 13 year old daughter, 4 year old daughter current occupational status: employed current occupation: [employer] How many Children do You have: 3 Other Information That Helps Us Care for You: No Feels Safe at Home: Yes Safety Concerns: Feels Safe At This Time Childhood Exposure to Second-Hand Smoke: Yes Diet: regular caffeine: Yes during the past year weight has: remained stable Dental Care, Regularly: Yes Physical Activity Frequency: Does not Exercise Seatbelt Use: always Sunscreen Use: Yes Assistive Devices: None Review of Systems As noted in HPI. Physical Exam Constitutional: Well appearing, well nourished, resting in bed. In no acute distress. Gastrointestinal (Abdomen): Gravid uterus. Soft, nontender. Psychiatric: A+Ox3, euthymic affect Genitourinary: HR monitor: 145 baseline with moderate variability. Accelerations to 160s. No decelerations. Rare contractions on toco. Results & Data Vital Signs (Past 12 Hours) Vital Signs Temp Pulse Resp BP 05/27/24 14:52 75 129/80 05/27/24 14:46 36.9 C 75 16 129/80
[2024-05-27] MEDS: fentANYL 2 MCG/ML BUPIVacaine 0.125%-NSS 100ML BAG ONE (18:36)
[2024-05-27] MEDS: BUPIVACAINE 0.25% PF 30 ML VIAL ONE (18:37)
[2024-05-27] MEDS: LIDOCAINE 2%/EPINEPHRINE 1:200,000 20 ML PF ONE (18:37)
--- NOTE | 2024-05-27 18:44 | Anesthesiology Consultation ---
Date of Service May 27, 2024 Assessment & Plan Chart Review Chart Review: Acceptable Risk for Labor Epidural Consults Requested none History Height/Weight Height: 5 ft 5 in Weight: 94.347 kg Allergies Allergy/AdvReac Type Severity Reaction Status Date / Time No Known Allergies Allergy Verified 05/19/24 15:21 Medications Home Medications Medication Instructions Recorded Confirmed Last Taken breast pump #1 ea 05/18/24 05/19/24 Unknown [id number] 1 mg tab PO 05/27/24 Unknown tablet Active Medications Generic Name Dose Route Start Last Admin Trade Name Freq PRN Reason Stop Dose Admin Lactated Ringer's 1,000 mls @ 125 mls/hr 05/27/24 14:38 05/27/24 18:22 Lr IV 05/28/24 14:37 125 mls/hr .Q8H PRN Infusion L&D Protocol Protocol Oxytocin 30 units in 500 mls @ 8 mls/hr 05/27/24 14:38 05/27/24 17:00 Pitocin 30 Units/Nss IV 05/29/24 14:37 0.48 units/hr .Q24H PRN 8 mls/hr Labor Induction/Augmentation Titration Protocol 0.48 UNITS/HR Past Medical History Medical History Missed LGSIL on Pap smear of cervix Bartholin gland cyst Bacterial vaginosis Bartholin gland cyst Changing skin lesion Dyspnea on exertion Palpitations Skin lesion of left leg Hx of varicella Acne Costochondritis Palpitations COPD (chronic obstructive pulmonary disease) Paresthesias Past Family History Family History Grandfather (Paternal) Diabetes Grandfather (Maternal) Diabetes Denies family history of Ovarian cancer Prostate cancer Coronary heart disease Breast cancer Colorectal cancer Past Surgical History Surgical History H/O surgical removal of Bartholin’s gland cyst H/O oral surgery wisdom teeth Social History Smoking Status: Never smoker Smoking cigarettes per day: 2 Do You Dip or Chew Tobacco: Yes Hx Alcohol Use: No Hx Substance Use: No substance use type: does not use Physical Exam Vital Signs Last Vital Signs Temp 36.8 C 05/27/24 17:30 Pulse 72 05/27/24 18:43 Resp 16 05/27/24 18:40 BP 108/59 L 05/27/24 18:43 Pulse Ox 96 05/27/24 18:41 Testing Laboratory Results 05/27/24 15:01 Blood Type A Positive 05/27/24 15:01 Antibody Screen NEGATIVE 05/27/24 15:01 05/27/24 17:09 POC Glucose 85
[2024-05-27] MEDS ORDERED: LIDOCAINE 2% MPF LOCAL 5 ML VIAL EPI PRN (18:45)
[2024-05-27] MEDS ORDERED: diphenhydrAMINE 50 MG/ML VIAL IV PRN (18:45)
[2024-05-27] MEDS ORDERED: SODIUM CHLORIDE 0.9% PF INJ 10 ML VIAL EPI PRN (18:45)
[2024-05-27] MEDS ORDERED: ROPIVACAINE 0.5% PF 5 MG/ML 20 ML VIAL EPI PRN (18:45)
[2024-05-27] MEDS ORDERED: NALOXONE HCL 0.4 MG/1 ML VIAL/CARP IV PRN (18:45)
[2024-05-27] MEDS ORDERED: NALOXONE HCL 1 MG in SODIUM CHLORIDE 0.9% 1,000 ML IV PRN (18:45)
[2024-05-27] MEDS ORDERED: fentaNYL citrate PF 100 MCG/2 ML VIAL EPI PRN (18:45)
[2024-05-27] MEDS ORDERED: BUPIVACAINE 0.25% PF 30 ML VIAL EPI PRN (18:45)
[2024-05-27] MEDS ORDERED: fentANYL 2 MCG/ML BUPIVacaine 0.125%-NSS 100ML BAG EPI PRN (18:45)
[2024-05-27] MEDS ORDERED: ePHEDrine sulfate 50 MG/ML AMP IV PRN (18:45)
[2024-05-27] MEDS ORDERED: NALBUPHINE HCL INJ 10 MG/ML AMP IV PRN (18:45)
[2024-05-27] MEDS: ePHEDrine sulfate 50 MG/ML AMP ONE (18:47)
[2024-05-27] MEDS: fentaNYL citrate PF 100 MCG/2 ML VIAL ONE (18:47)
[2024-05-27] MEDS: SODIUM CHLORIDE 0.9% PF INJ 10 ML VIAL ONE (18:47)
--- NOTE | 2024-05-27 19:22 | Delivery Summary ---
Vaginal Delivery Summary Date of Service May 27, 2024 Vaginal Delivery Summary Pre-operative Diagnosis: at 38 5/7 iugr Post-operative Diagnosis: same Procedure: arom pitocin epidural QBL: 102 Anesthesia: epidural Procedure: Admitted for iol for iugr. Was 3cm on admission. Had arom and pit. Because very painful, 4cm, desired and received epidural. Once comfortable. Checked and ant lip. Shortly thereafter, felt urge to push. The patient pushed for one contraction to deliver a viable female infant in naresh position. The rest of the infant was then delivered without difficulty. The baby was vigorous. The nose and mouth were bulb suctioned and the was placed in the maternal abdomen for drying and attention. Cord was clamped and cut at one minute of life. Cord blood and segment obtained. Placenta delivered spontaneous, intact with a three vessel cord. Cervix/sulci/rectum/perineum were intact. Hemostasis obtained with dilute pitocin and fundal massage. Apgars were pending. Mother and baby doing well at the end of the delivery. [facility] Vaginal Delivery Charge Delivery Type Details: [facility]3]
[2024-05-27] MEDS ORDERED: HYDROCORTISONE ACETATE 25 MG SUPP PR PRN (19:23)
[2024-05-27] MEDS ORDERED: IBUPROFEN 600 MG TAB PO PRN (19:23)
[2024-05-27] MEDS ORDERED: ACETAMINOPHEN 325 MG TAB PO PRN (19:23)
[2024-05-27] MEDS ORDERED: DIPHTHER/TETAN/PERTUS Vaccine (Tdap, Adol/Adult) 0.5mL IM ONE (19:23)
[2024-05-27] MEDS ORDERED: BENZOCAINE 20% SPRY 85 APPLN/85 GM CAN EXT PRN (19:23)
[2024-05-27] MEDS ORDERED: bisacodyL 10 MG SUPP PR PRN (19:23)
--- NOTE | 2024-05-27 20:20 | Anesthesia Procedure Note ---
Date of Service May 27, 2024 Anesthesia Post Epidural Note Vital Signs Vital Signs: Temp Pulse Resp BP Pulse Ox 36.9 C 53 L 18 113/56 L 98 05/27/24 19:05 05/27/24 20:09 05/27/24 19:45 05/27/24 20:09 05/27/24 19:16 Pain Intensity Abdomen: Pain Intensity: 5 Notes Mental Status: alert / awake / arousable Nausea / Vomiting: adequately controlled Pain: adequately controlled Airway Patency, RR, SpO2: stable & adequate BP & HR: stable & adequate Hydration State: stable & adequate Neuraxial Anesthesia: was administered and sensory block is resolving Anesthetic Complications: no major complications apparent and Pt Satisfied with anesthetic care Epidural: Removed without complications and With tip intact
[2024-05-27] MEDS: DOCUSATE SODIUM 100 MG CAP PO SCH (21:33)
[2024-05-27] MEDS: fentaNYL citrate PF 100 MCG/2 ML VIAL EPI STA (21:51)
[2024-05-27] MEDS: LIDOCAINE 2%/EPINEPHRINE 1:200,000 20 ML PF EPI STA (21:51)
[2024-05-27] MEDS: SODIUM CHLORIDE 0.9% PF INJ 10 ML VIAL EPI STA (21:51)
[2024-05-27] MEDS: BUPIVACAINE 0.25% PF 30 ML VIAL EPI STA (21:51)
[2024-05-28 01:04] VITALS: TEMP 97.9
--- NOTE | 2024-05-28 06:41 | Obstetrical Progress Note ---
Date of Service <Sadie Browning MD - Last Filed: 05/28/24 08:01> May 28, 2024 Assessment & Plan <Sadie Browning MD - Last Filed: 05/28/24 08:01> (1) care and examination: PPD#1 s/p at 38+ wga: Stable. Rh+, gbs neg, ri, vitals & H/H wnl Continue routine care, ambulation, diet as tolerated Plan for DC tonight <Grace Atkinson MD, FACOG - Last Filed: 05/28/24 08:08> (1) care and examination: Subjective <Sadie Browning MD - Last Filed: 05/28/24 08:01> Patient is a 33yo who is PPD#1 following at 38 5/7 weeks. Reports minimal abd pain/cramping Voiding w/o issue Tolerating meals Ambulating normally +passing gas, no BM yet Lochia minimal, diminishing Planning to breastfeed. Constitutional: no fever, no chills or no sweats Respiratory: no dyspnea Cardiovascular: no chest pain, no palpitations or no calf pain Breast: no breast pain Gastrointestinal: no nausea or no vomiting Genitourinary (female): no dysuria Neurologic: no headache(s) no changes in vision, no headaches Physical Exam <Saide Browning MD - Last Filed: 05/28/24 08:01> General: Alert, oriented. No acute distress. Cardiac: Regular rate and rhythm, no murmurs, rubs, or gallops. Respiratory: Clear to auscultation bilaterally. No increased work of breathing. Symmetrical chest rise. No respiratory distress. Abdomen: Soft, nontender, nondistended. Bowel sounds present. Uterus: Uterine fundus firm, nontender, palpable >4 cm below the umbilicus. Lower extremities: No lower extremity edema or swelling. No deep calf pain. Results & Data <Sadie Browning MD - Last Filed: 05/28/24 08:01> Vital Signs (Past 12 Hours) Vital Signs Temp Pulse Pulse Resp BP BP Pulse Ox 05/28/24 04:40 36.6 C 51 L 18 117/74 05/28/24 00:15 36.6 C 60 18 117/74 05/27/24 21:52 36.7 C 60 18 112/75 05/27/24 21:18 56 L 126/61 05/27/24 21:15 37.0 C 18 05/27/24 21:10 57 L 114/61 05/27/24 20:54 56 L 117/63 05/27/24 20:45 18 05/27/24 20:39 48 L 111/59 L 05/27/24 20:25 52 L 106/59 L 05/27/24 20:15 18 05/27/24 20:09 53 L 113/56 L 05/27/24 20:00 18 05/27/24 19:54 52 L 103/54 L 05/27/24 19:45 18 05/27/24 19:40 55 L 101/51 L 05/27/24 19:30 18 05/27/24 19:23 63 118/56 L 05/27/24 19:20 72 112/70 05/27/24 19:16 63 98 05/27/24 19:15 18 05/27/24 19:14 63 132/58 L 05/27/24 19:11 73 99 05/27/24 19:06 75 99 05/27/24 19:05 36.9 C 18 05/27/24 19:04 68 135/72 05/27/24 19:01 70 100 05/27/24 19:00 16 05/27/24 19:00 16 05/27/24 18:58 71 109/64 05/27/24 18:56 66 99 05/27/24 18:53 58 L 113/65 05/27/24 18:51 64 99 05/27/24 18:48 62 111/63 05/27/24 18:46 97 05/27/24 18:46 66 05/27/24 18:46 69 110/63 05/27/24 18:43 72 108/59 L 05/27/24 18:41 96 05/27/24 18:41 66 05/27/24 18:41 67 115/62 O2 Del Method 05/28/24 04:40 Room Air 05/28/24 00:15 Room Air 05/27/24 21:52 05/27/24 21:18 05/27/24 21:15 05/27/24 21:10 05/27/24 20:54 05/27/24 20:45 05/27/24 20:39 05/27/24 20:25 05/27/24 20:15 05/27/24 20:09 05/27/24 20:00 05/27/24 19:54 05/27/24 19:45 05/27/24 19:40 05/27/24 19:30 05/27/24 19:23 05/27/24 19:20 05/27/24 19:16 05/27/24 19:15 05/27/24 19:14 05/27/24 19:11 05/27/24 19:06 05/27/24 19:05 05/27/24 19:04 05/27/24 19:01 05/27/24 19:00 05/27/24 19:00 05/27/24 18:58 05/27/24 18:56 05/27/24 18:53 05/27/24 18:51 05/27/24 18:48 05/27/24 18:46 05/27/24 18:46 05/27/24 18:46 05/27/24 18:43 05/27/24 18:41 05/27/24 18:41 05/27/24 18:41 Laboratory Results 05/27/24 15:01 Supervising Physician <Grace Atkinson MD, FACOG - Last Filed: 05/28/24 08:08> Co-Signing Physician Notes Resident Physician Supervision Note: I interviewed and examined the patient. Discussed with Dr. Browning and agree with findings and plan as documented in the note. Any exceptions or clarifications are listed here: Doing well. Desires d/c today. Instructions given. Documented By: Grace Atkinson MD, FACOG Resident Activity Tracking <Sadie Browning MD - Last Filed: 05/28/24 08:01> Resident Involvement: Resident Care Provided Care Provided: Adult Hospital Medicine
[2024-05-28 07:56] VITALS: RESP 16
[2024-05-28 08:10] LABS: Hemoglobin 11.6 g/dl (12.0-16.0); Mean Corpuscular Hemoglobin 29.7 pg (25.0-34.0); Mean Corpuscular Hgb Conc 34.1 g/dL (32.0-36.0); Mean Platelet Volume 11.2 fL (9.4-12.4); Platelet Count 148 K/uL (130-400); RDW Coefficient of Variation 13.4 % (11.5-14.5); Red Blood Count 3.91 M/uL (4.20-5.40); White Blood Count 8.33 K/ul (4.8-10.8)
[2024-05-28] MEDS: PRENATAL VITAMIN 1 TAB PO SCH (08:47)
[2024-05-28 15:42] VITALS: BP 105/68; PULSE 64; O2SAT 98
[2024-05-28] MEDS ORDERED: bisacodyL 5 MG TABEC PO SCH (20:00)
== END 2024-05-28 20:20 | disposition home or self-care (01) | DRG 807 ==
LOC: 4S1 14:05 → 4E2 22:29